=== PATIENT | female | born 1980 | race Caucasian/White ===

== ENCOUNTER 2019-02-13 12:14 | Outpatient (REF) | payer BC, SELFPAY ==
--- NOTE | 2019-02-13 10:00 | PAPFT_PTH ---
PATIENT: Reena Carballo LOC: [facility] U#:[id number] AGE/SX: 39/F ROOM: RE02/13/[address]: Dina Erickson : 1980 BED: DIS: 02/13/2019 SPEC #: [id number] RECD: 02/14/19 12:52 STATUS: ELISHA REQ #: [id number] SHANKAR: 02/13/19 10:[address]: Dina Erickson DEPT: [facility] Cytology RECD BY: Tg Cisneros Tissues: 1 - CX/ENDOCX FOR PAP SMEARS Procedures: PAP THIN PREP/[facility] Screening HPV DNA PROBE Comments: [id number] (CHLAMYDIA/GC)
[2019-02-15 14:17] LABS: Chlamydia Result Negative; GC Result Negative; Specimen Description SEE COMMENTS
== END 2019-02-13 12:34 ==
LOC: NCHCN 12:14
PROVIDERS: PCP Registered Nurse; Visit Provider Registered Nurse
DX: Z12.4 Encounter for screening for malignant neoplasm of cervix (principal); Z11.51 Encounter for screening for human papillomavirus (HPV); Z11.3 Encounter for screening for infections with a predominantly sexual mode of transmission; Z00.00 Encounter for general adult medical examination without abnormal findings
CPT/HCPCS: 87491; 87591; 88142; 87624

== ENCOUNTER 2023-10-28 15:44 | Outpatient (REF) | payer OTHER, SELFPAY ==
--- NOTE | 2023-10-28 08:15 | PAPFT_PTH ---
PATIENT: Reena Carballo LOC: [facility]#:[id number] AGE/SX: 43/F ROOM: RE10/28/[address]: Jenniffer Powell : 1980 BED: DIS: 10/28/2023 SPEC #: [id number] RECD: 10/28/23 18:19 STATUS: ELISHA TEJ #: [id number] SHANKAR: 10/28/23 08:[address]: Jenniffer Powell DEPT: [facility] Cytology RECD BY: Tg Cisneros ENTERED: 10/28/23 18:19 SP TYPE: PAPFT OTHR DR: Dina Erickson Tissues: 1 - CX/ENDOCX FOR PAP SMEARS Procedures: PAP THIN PREP/[facility] Screening HPV DNA PROBE Comments: [id number] (HPV 16 & 18/45) (CHLAMYDIA/GC)
[2023-10-29 12:35] LABS: Chlamydia Result Negative (Negative); GC Result Negative (Negative)
== END 2023-10-28 15:45 | disposition home or self-care (01) ==
LOC: NCHCN 15:44
PROVIDERS: PCP Registered Nurse; Visit Provider Nurse Practitioner Family
DX: Z00.00 Encounter for general adult medical examination without abnormal findings (principal); Z12.4 Encounter for screening for malignant neoplasm of cervix; Z11.51 Encounter for screening for human papillomavirus (HPV); Z11.3 Encounter for screening for infections with a predominantly sexual mode of transmission
CPT/HCPCS: 87491; 87591; 88142; 87624

== ENCOUNTER 2024-10-30 09:48 | Outpatient (REF) | payer OTHER, SELFPAY ==
[2024-10-30 15:29] LABS: ALT 31 U/L (14-59); AST 20 U/L (15-37); Alkaline Phosphatase 76 U/L (46-116); Anion Gap 6.4 mmol/L (3-11); BUN 9 mg/dL (7-18); Bilirubin, Total 0.4 mg/dL (0.2-1.0); CO2 28.6 mmol/L (21.0-32.0); CREATININE 0.7 mg/dL (0.55-1.02); Calcium 8.9 mg/dL (8.5-10.1); Calculated LDL 96 mg/dL (<100); Chloride 104 mmol/L (98-107); Cholesterol 165 mg/dL (<200); Estimated GFR 110.67 (mL/min/1.73m2); Glucose 101 mg/dL (74-106); HDL Cholesterol 58 mg/dL (>or=50); Potassium 4.3 mmol/L (3.5-5.1); Sodium 139 mmol/L (136-145); Total Protein 7.1 g/dL (6.4-8.2); Triglyceride 57 mg/dL (<150)
== END 2024-10-30 09:49 | disposition home or self-care (01) ==
LOC: NCHCN 09:48
PROVIDERS: PCP Registered Nurse; Visit Provider Nurse Practitioner Family
DX: Z00.00 Encounter for general adult medical examination without abnormal findings (principal)
CPT/HCPCS: 80053; 80061; 83036